=== PATIENT | female | born 1965 | race American Indian/Alaskan Native ===

== ENCOUNTER 2019-09-07 13:59 | Outpatient (CLI) | payer BC ==
--- NOTE | 2019-09-07 16:28 | Magnetic Resonance Report ---
BILATERAL BREAST MRI WITH AND WITHOUT CONTRAST HISTORY: Patient is reported to be at high risk for breast malignancy, right breast pain. COMPARISON: None currently available. TECHNIQUE: Multiplanar multisequence MR images of the breast were obtained before and after the intra venous administration of contrast. FINDINGS: There is moderate background parenchymal enhancement bilaterally which along with the presence of mul tiple scattered enhancing foci decreases the sensitivity of breast MRI. LEFT BREAST: Within the left upper inner anterior breast is a 4 x 4 x 4 mm oval enhancing mass. Porti ons of this demonstrate type III enhancement kinetics. RIGHT BREAST: No discrete enhancing mass, dominant focus, or other abnormal enhancement is identified within the right breast. No abnormal axillary or internal mammary lymph nodes. IMPRESSION: There is a 4 mm area of focal enhancement within the left upper inner breast for which a targeted ult rasound is recommended for further evaluation. For localization purposes, this is estimated to be at the 11:00 position, 3 cm from the nipple. We do not have records of a screening mammogram for this patient. If she has not had a recent screeni ng mammogram, it is recommended that she have one in the near future. BIRADS 0: Incomplete--Needs Additional Imaging Evaluation. A normal MRI does not exclude the presence of some forms of breast malignancy as literature reports s uggest that some forms of ductal carcinoma in situ or lobular carcinoma, particularly, may not be det ected on MRI. The sensitivity and specificity of MRI for cancers under 5 mm may be reduced. MRI does not replace the recommendation for annual conventional mammographic evaluation and should be used as an adjunct to mammography and physical examination as necessary. Signer Name: Darell Irby MD Signed: 09/07/2019 4:24 PM Workstation Name: [id number]
== END 2019-09-07 14:00 | disposition home or self-care (01) ==
LOC: SPVIMAG 13:59
PROVIDERS: ATTEND Surgery
DX: N64.4 Mastodynia (principal)
CPT/HCPCS: A9577; C8908; 77049

== ENCOUNTER 2019-11-22 14:11 | Outpatient (CLI) | payer BC ==
--- NOTE | 2019-11-22 16:35 | Ultrasound Report ---
LEFT BREAST ULTRASOUND LIMITED HISTORY: A 4 mm enhancing mass in the upper inner on recent MRI. COMPARISON: 09/07/2019 MRI FINDINGS: Sonographic evaluation focused upon the upper inner location of the left breast demonstrate s no distinct abnormality. No mass or shadowing to correlate with the MRI finding. IMPRESSION: Negative targeted left breast ultrasound. Since we do not have a recent mammogram for comparison, rec ommend a left diagnostic mammogram. If there is no mammographic finding to correlate with the MR find ing, recommend a follow-up breast MRI in February 2020. This will be a 6 month follow-up from the 05/2020 MRI. BI-RADS 0: Needs Additional Imaging. Signer Name: Ahsan Haider MD Signed: 11/22/2019 4:30 PM Workstation Name: [id number]
== END 2019-11-22 14:12 | disposition home or self-care (01) ==
LOC: SPVWC 14:11
PROVIDERS: ATTEND Surgery
DX: R92.8 Other abnormal and inconclusive findings on diagnostic imaging of breast (principal)